=== PATIENT | female | born 1975 | race Caucasian/White ===

== ENCOUNTER 2020-08-07 11:49 | Outpatient (CLI) | payer OTHER ==
[2020-08-07 14:52] LABS: #Eosinphils 0.2 10x3/uL (0.0-0.5); #Monocytes 0.5 10x3/uL (0.0-1.1); #Neutrophils 5.9 10x3/uL (1.5-8.4); %Basophils 0.3 % (0.0-2.0); %Eosinophils 1.7 % (0.0-6.0); %Lymphocytes 25.9 % (18.0-47.0); %Monocytes 5.1 % (0.0-10.0); %Neutrophils 66.2 % (40.0-75.0); Hemoglobin 13.8 g/dL (12.0-15.5); Mean Corpuscular HGB CONC 33.6 g/dL (32.0-36.0); Mean Corpuscular Hemoglobin 28.9 pg (27.0-33.0); Mean Platelet Volume 9.4 fl (7.4-10.4); Platelet Count 337 10x3/uL (150-450); RBC Distribution Width 12.3 % (11.5-14.5); Red Blood Cell (RBC) Count 4.78 10x6/uL (3.90-5.03); White Blood Cell (WBC) Count 8.9 10x3/uL (3.5-10.5)
[2020-08-08 11:14] LABS: SARS-CoV-2 PCR by NAA Not Detected (NotDetected)
== END 2020-08-07 11:50 | disposition home or self-care (01) ==
LOC: LABBT 11:49
PROVIDERS: ATTEND Orthopaedic Surgery
DX: Z01.812 Encounter for preprocedural laboratory examination (principal); Z20.822 Contact with and (suspected) exposure to COVID-19; M23.261 Derangement of other lateral meniscus due to old tear or injury, right knee
CPT/HCPCS: 85025; U0003; U0005

== ENCOUNTER 2020-08-10 06:38 | Day surgery (SDC) | payer OTHER ==
[2020-08-09 09:47] VITALS: BMI 45.3
[2020-08-10] MEDS ORDERED: Clindamycin/D5W 600 mg/50 ml Premix Bag ONE (06:53)
[2020-08-10] MEDS ORDERED: Midazolam HCl 2 mg/2 ml Vial ONE ×2 (07:09→08:43)
[2020-08-10] MEDS ORDERED: Famotidine/PF 20 mg/2ml Vial ONE (07:09)
[2020-08-10] MEDS ORDERED: Scopolamine 1.5 mg/72 hour Patch ONE (07:24)
[2020-08-10] MEDS ORDERED: Bupivacaine PF 0.5% 30 ML VIAL ONE (08:37)
[2020-08-10] MEDS ORDERED: Fentanyl 100 MCG/2 ML VIAL ONE ×4 (08:40→10:38)
[2020-08-10] MEDS ORDERED: Lidocaine 1% (PF) 30 ML VIAL ONE (09:36)
== END 2020-08-10 13:35 | disposition home or self-care (01) ==
LOC: SDC 06:38
PROVIDERS: ATTEND Orthopaedic Surgery
PROC: 0SBC4ZZ Excision of Right Knee Joint, Percutaneous Endoscopic Approach (ICD-10-PCS; principal; 2020-08-10)
DX: M23.261 Derangement of other lateral meniscus due to old tear or injury, right knee (principal); I10 Essential (primary) hypertension; E78.5 Hyperlipidemia, unspecified; E78.00 Pure hypercholesterolemia, unspecified; Z79.899 Other long term (current) drug therapy; Z88.0 Allergy status to penicillin
CPT/HCPCS: J2001; J2250; J3010; J3490; S0020; S0028